=== PATIENT | female | born 1955 | race American Indian/Alaskan Native ===

== ENCOUNTER 2017-04-01 09:28 | Day surgery (SDC) | payer MEDICAID ==
--- NOTE | 2017-04-01 10:47 | Short Stay Summary ---
Short Stay Documentation Date of service: 04/01/17 Narrative H&P: 61 year old with scleroderma and recurring bouts of esophageal Candidiasis, with recurrent esophageal symptoms. If Shaunna present, plan to biopsy for culture and sensitivity per recommendation of ID beauty consultant. - History Principal diagnosis: dysphagia, odynophagia, history esophageal Candidiasis H&P: obtained from office Past Medical History: arthritis, COPD (asthma), other (scleroderma, GERD, recurring esophageal Candidiasis, irritable bowel syndrome, hx peptic ulcer) Past Surgical History: Other (hemorrhoidectomy, tubal ligation) - Allergies and Medications Current Medications: Allergies No Known Allergies Allergy (Verified 04/01/17 10:00) Active Medications Sodium Chloride (Nacl 0.9% 1000 Ml) 1,000 mls @ 50 mls/hr IV DIRECT BELLE Last Admin: 04/01/17 10:42 Dose: 50 mls/hr - Physical exam General appearance: no acute distress HEENT: PERRLA, EOMI Lungs: Clear to auscultation Heart: Regular rate, Normal S1, Normal S2 Gastrointestinal: normal Neurological: Normal speech - Hospital course Hospital course: Uneventful EGD. - Disposition Condition at discharge: Good Disposition: DC-01 TO HOME OR SELFCARE - Discharge Diagnoses (1) Esophageal candidiasis Status: Acute (2) Dysphagia Status: Acute (3) Hiatal hernia Status: Acute (4) Scleroderma Status: Acute (5) Family history of colon cancer in father Status: Acute Short Stay Discharge Plan Activity: other (no driving today) Diet: other (may resume usual diet) Additional Instructions: Patient to call for biopsy results in 14 days if she has not heard from us by then. Follow up with: ARIELLE PADILLA JR, MD [Primary Care Provider] - 7 Days
[2017-04-01] MEDS ORDERED: NACL 0.9% 1000 ML 1,000 ML IV SCH (11:00)
[2017-04-01] MEDS ORDERED: WATER FOR IRRIG STERILE IR ONE (11:21)
--- NOTE | 2017-04-01 11:25 | Anesthesia Consultation ---
Anesthesia Consult and Med Hx Date of service: 04/01/17 - Airway Anesthetic Teeth Evaluation: Good ROM Head & Neck: Adequate Mental/Hyoid Distance: Adequate Mallampati Class: Class I Intubation Access Assessment: Good - Pre-Operative Health Status ASA Pre-Surgery Classification: ASA2 Proposed Anesthetic Plan: General - Pulmonary Hx Asthma: Yes (Bronchitis, also) Hx Pneumonia: Yes - Cardiovascular System Hx Hypertension: Yes - Hematic Hx Anemia: Yes - Additional Comments Anesthesia Medical History Comments: NAC
--- NOTE | 2017-04-01 11:25 | Anesthesia Day of Surgery ---
Anesthesia Day of Surgery - Day of Surgery Patient Examined: Yes Patient H&P Reviewed: Yes Patient is NPO: Yes
[2017-04-01] MEDS ORDERED: DIPRIVAN 10 MG/ML IV ONE (11:29)
--- NOTE | 2017-04-01 11:51 | Operative Report ---
Operative Report Operative Report: Date of procedure: 04/01/2017 Preprocedure diagnosis: Recurrent dysphagia suspicious for recurrent esophageal candidiasis Post procedure diagnosis: Recurrent esophageal candidiasis, hiatal hernia Procedure name(s): Esophagogastroduodenoscopy and biopsy Surgeon: Misha Jules MD Anesthesia: Monitored anesthesia care EBL: 1-2 mL Procedure: The indications, techniques, potential complications and alternatives , had been discussed in full detail prior to the date of the exam, and once again on the day of the exam. Questions were encouraged and answered, and consent was thereby obtained. The patient was placed in the left lateral decubitus position, and was medicated by anesthesia services. See the anesthesia records for details. The tip of a [employer] video panendoscope was passed easily through the pharynx and into the esophagus. There were a few white macules adherent to mucosa in the proximal esophagus, very few if any in the midesophagus, but several confluent in the distal third of the esophagus. See photographs. There was no evidence of esophageal stricture, ring or neoplasm to explain dysphagia. Visible esophageal mucosa was not grossly inflamed. A small hiatal hernia was traversed as the instrument was advanced into the stomach. Once in the stomach , air was insufflated. The stomach distended well, gastric folds were normal in thickness and contour, the pylorus was patent and there was no retained gastric content. The gastric mucosa was normal in appearance throughout. No pathology was found in the duodenal bulb or in the post bulbar duodenum to below the level of the ampulla. Retroflexion in the stomach disclosed no additional pathology involving the lesser curvature, fundus or cardia. The endoscope was then slowly withdrawn with repeat examination of the stomach, esophagogastric junction and esophagus. Biopsies were obtained from the esophagus and submitted for fungal culture and sensitivity, as well as for histology. The estimated blood loss was minimal. The instrument was fully withdrawn. The procedure was very well tolerated. Postprocedure she was monitored in the recovery area of the GI lab to ensure stability prior to her release. See the outpatient record for details regarding instructions to patient, medications and plans for follow-up. Final diagnosis: 1. Recurrent esophageal candidiasis sufficient to account for esophageal symptoms 2. Small hiatal hernia 3. Otherwise normal upper endoscopy Misha Jules M.D. Dictated to 07/14/2017 at 11:46 AM
[2017-04-01 12:02] VITALS: BP 111/72
== END 2017-04-01 09:29 | disposition home or self-care (01) ==
LOC: GIO 09:28
PROVIDERS: ATTEND Internal Medicine Gastroenterology
DX: B37.81 Candidal esophagitis (principal); M19.90 Unspecified osteoarthritis, unspecified site; J44.9 Chronic obstructive pulmonary disease, unspecified; K21.9 Gastro-esophageal reflux disease without esophagitis; K58.9 Irritable bowel syndrome, unspecified; I10 Essential (primary) hypertension; K27.9 Peptic ulcer, site unspecified, unspecified as acute or chronic, without hemorrhage or perforation; M34.9 Systemic sclerosis, unspecified; K44.9 Diaphragmatic hernia without obstruction or gangrene; Z98.51 Tubal ligation status; Z80.0 Family history of malignant neoplasm of digestive organs
CPT/HCPCS: 43239; 87102; 87116; 87220; 88305; 88312; J2704